=== PATIENT | female | born 1975 | race Caucasian/White ===

== ENCOUNTER 2017-01-06 02:02 | Emergency (ER) | payer OTHER ==
[2017-01-06] MEDS ORDERED: ONDANSETRON 4 MG ODT TAB ONE (02:14)
== END 2017-01-06 02:36 | disposition home or self-care (01) ==
LOC: ED 02:02
DX: R11.2 Nausea with vomiting, unspecified (principal)
CPT/HCPCS: 99283 ×2; A9270

== ENCOUNTER 2017-01-22 23:00 | Emergency (ER) | payer OTHER | END 2017-01-23 00:02 | disposition home or self-care (01) | LOC: ED 23:00 | DX: T23.101A Burn of first degree of right hand, unspecified site, initial encounter (principal); X11.8XXA Contact with other hot tap-water, initial encounter; Y92.9 Unspecified place or not applicable ==